=== PATIENT | female | born 1995 | race Hispanic/Latino ===

== ENCOUNTER 2017-08-26 21:08 | Emergency (ER) | payer OTHER ==
[~2017-08-26] VITALS: Ht 172.7 cm; Wt 46.0 kg
[~2017-08-26 21:08] MED LIST: CLINDAMYCIN2 % VA; CLINDAMYCIN300 M1 PO; FLUARIX QUADRIV1 IN1 IM; FLUMIST NASA1 LIQ; FLUZONE SPLT1 M1 IM; HAVRIX720 UNI1 IM; MENACTRA IM; MUPIROCIN2 % EX; NAPRELAN375 MG PO; NAPROSYN500 MG PO; POLYTRIM OU
[2017-08-26] MEDS ORDERED: NAPROSYN500 MG PO (21:54)
[2017-08-26 22:05] VITALS: BP 109/71
== END 2017-08-26 22:05 | disposition home or self-care (01) | DRG 563 ==
LOC: ED 21:08
DX: S96.911A Strain of unspecified muscle and tendon at ankle and foot level, right foot, initial encounter (principal); M25.571 Pain in right ankle and joints of right foot; X58.XXXA Exposure to other specified factors, initial encounter

== ENCOUNTER 2018-03-11 19:47 | Emergency (ER) | payer OTHER ==
[~2018-03-11] VITALS: Ht 172.7 cm; Wt 48.4 kg
[2018-03-11] MEDS ORDERED: BIRTH CONTROL (20:00)
[2018-03-11 20:21] LABS: HEMATOCRIT 37.6 % (37.0-47.0); HEMOGLOBIN 12.6 g/dl (12.0-16.0); IMMATURE GRANULOCYTES 0.2 % (0.0-1.0); MEAN CELL VOLUME 86.2 fL CALC (80.0-100.0); MEAN CORPUSCULAR HGB 28.9 pG CALC (26.0-32.0); MEAN CORPUSCULAR HGB CONC 33.5 g/L CALC (32.0-36.0); NEUT# 2.45 thou/uL (2.00-7.15); RED BLOOD COUNT 4.36 mill/uL (4.20-5.60); RED CELL DISTRI WIDTH 12.5 % (11.5-15.5)
[2018-03-11 20:45] LABS: ALBUMIN 4.6 g/dL (3.2-5.0); ALKALINE PHOSPHATASE 80 u/l (38-126); ANION GAP 19 (6-22 (CALC)); BILIRUBIN, TOTAL 0.3 mg/dL (0.0-1.4); BUN 9 mg/dL (7-17); BUN/CREATININE RATIO 16 (12-20 (CALC)); CARBON DIOXIDE 27 mmol/l (22-30); CHLORIDE 101 mmol/l (95-108); CREATININE 0.6 mg/dL (0.5-1.0); GFR > 60 ML/MIN (>=60 (CALC)); GFR FOR AFR.AMER. > 60 ML/MIN (>=60 (CALC)); POTASSIUM 3.5 mmol/l (3.5-5.1); SGOT/AST 22 u/l (14-36); SGPT/ALT 33 u/l (9-52); SODIUM 143 mmol/l (137-146); TOTAL PROTEIN 8.5 g/dL (6.3-8.2)
[2018-03-11 21:09] VITALS: BP 121/82
== END 2018-03-11 21:22 | disposition home or self-care (01) | DRG 313 ==
LOC: ED 19:47
DX: R07.9 Chest pain, unspecified (principal); R06.02 Shortness of breath

== ENCOUNTER 2023-06-17 16:20 | Emergency (ER) | payer BC ==
[2023-06-17] VITALS (10 sets, daily range): BP systolic 105–122; BP diastolic 61–77
[~2023-06-17] VITALS: Ht 172.7 cm; Wt 51.0 kg
[~2023-06-17 16:20] MED LIST changes: +BIRTH CONTROL
[2023-06-17 18:02] LABS: URINE BILIRUBIN - DIPSTICK NEGATIVE (NEGATIVE); URINE COLOR YELLOW; URINE GLUCOSE - DIPSTICK NEGATIVE (NEGATIVE); URINE KETONE NEGATIVE (NEGATIVE); URINE PH 8.5 (4.5-8.0); URINE PROTEIN - DIPSTICK NEGATIVE (NEG-TRACE)
[2023-06-17 18:03] LABS: URINE BLOOD DIPSTICK NEGATIVE (NEGATIVE); URINE LEUK ESTERASE NEGATIVE (NEGATIVE); URINE NITRITE - DIPSTICK NEGATIVE (Negative)
[2023-06-17 18:31] LABS: BASO% 0.7 % (0-3); EOS% 2.5 % (0-8); HEMATOCRIT 35.1 % (37.0-47.0); HEMOGLOBIN 11.4 g/dl (12.0-16.0); IMMATURE GRANULOCYTES 0.2 % (0.0-5.0); LYMPH% 33.3 % (15-41); MEAN CELL VOLUME 87.5 fL CALC (80.0-100.0); MEAN CORPUSCULAR HGB 28.4 pG CALC (26.0-32.0); MEAN CORPUSCULAR HGB CONC 32.5 g/dL CAL (32.0-36.0); MONO% 10.4 % (2-13); NEUT# 3.01 thou/uL (2.00-7.15); NEUT% 52.9 % (42-76); RED BLOOD COUNT 4.01 mill/uL (4.20-5.60); RED CELL DISTRI WIDTH 11.7 % (11.5-15.5)
[2023-06-17 18:50] LABS: ALBUMIN 4.4 g/dL (3.2-5.0); ALKALINE PHOSPHATASE 56 u/l (38-126); ANION GAP 13 (6-22 (CALC)); BILIRUBIN, TOTAL 0.3 mg/dL (0.02-1.3); BUN 9 mg/dL (7-17); BUN/CREATININE RATIO 16 (12-20 (CALC)); CARBON DIOXIDE 24 mmol/l (22-30); CHLORIDE 104 mmol/l (95-108); CREATININE 0.6 mg/dL (0.5-1.0); GFR FOR AFR.AMER. > 60 ML/MIN (>=60 (CALC)); GFR OTHER RACES > 60 ML/MIN (>=60 (CALC)); POTASSIUM 3.8 mmol/l (3.5-5.1); SGOT/AST 27 u/l (14-36); SODIUM 137 mmol/l (137-146); TOTAL PROTEIN 7.7 g/dL (6.3-8.2)
[2023-06-17] MEDS ORDERED: MIRALAX17 GM PO (19:03)
== END 2023-06-17 19:31 | disposition home or self-care (01) | DRG 392 ==
LOC: ED 16:20
PROVIDERS: Family Medicine
DX: K59.00 Constipation, unspecified (principal)

== ENCOUNTER 2024-10-27 13:39 | Emergency (ER) | payer OTHER ==
[2024-10-27] VITALS (7 sets, daily range): BP systolic 101–117; BP diastolic 59–73
[~2024-10-27] VITALS: Ht 172.7 cm; Wt 54.0 kg
[~2024-10-27 13:39] MED LIST changes: +MIRALAX17 GM PO
== END 2024-10-27 15:46 | disposition home or self-care (01) | DRG 951 ==
LOC: ED 13:39
DX: Z34.01 Encounter for supervision of normal first pregnancy, first trimester (principal); Z3A.00 Weeks of gestation of pregnancy not specified

== ENCOUNTER 2024-11-20 21:22 | Emergency (ER) | payer OTHER ==
[~2024-11-20] VITALS: Ht 175.3 cm; Wt 51.0 kg
[2024-11-20 22:07] VITALS: BP 118/76
[2024-11-20 22:15] VITALS: BP 114/61
[2024-11-20] MEDS ORDERED: [UNRECOGNIZED DRUG - OTHER] PO (22:28)
[2024-11-20 23:37] VITALS: BP 118/76
== END 2024-11-20 23:40 | disposition home or self-care (01) | DRG 833 ==
LOC: ED 21:22
DX: O20.9 Hemorrhage in early pregnancy, unspecified (principal); Z3A.01 Less than 8 weeks gestation of pregnancy